=== PATIENT | male | born 1970 | race Caucasian/White ===

== ENCOUNTER 2017-12-02 11:22 | Outpatient (CLI) | payer OTHER | END 2017-12-02 11:33 | disposition home or self-care (01) | LOC: RAD 11:22 | DX: M54.5 Low back pain (principal); M54.2 Cervicalgia ==

== ENCOUNTER 2024-01-13 07:10 | Outpatient (CLI) | payer OTHER ==
[2024-01-13 07:46] LABS: PH,URINE 6.5 (5.0-8.0); URINE APPEARANCE Clear; URINE BILIRRUBIN Negative (NEGATIVE); URINE BLOOD Negative; URINE COLOR Yellow; URINE GLUCOSE Negative (NEGATIVE); URINE KETONE Negative (NEGATIVE); URINE LEUKOCYTE Negative; URINE NITRATE Negative; URINE PROTEIN Negative (NEGATIVE); URINE UROBILINOGEN 0.2 E.U./dl
[2024-01-13 07:48] LABS: URINE RBC 3.8 uL (0.0-20.8)
[2024-01-13 08:00] LABS: URINE BACTERIA 1.2 uL (0.0-1933); URINE EPITHELIAL CELLS 0.3 uL (0.0-38.8); URINE WBC 1.6 uL (0.0-23.2)
[2024-01-13 09:02] LABS: ALBUMIN 3.5 gm/dL (3.4-5.0); BILIRUBIN TOTAL 0.56 mg/dL (0.3-1.2); CALCIUM 8.8 mg/dL (8.5-10.1); CHOL HDL RATIO 3.8 (0-5.0); CREATININE SERUM 0.93 mg/dL (0.70-1.30); GFR 85.66; GLOBULINA 3.2 G/DL (2.4-3.5); HEMOGLOBIN 14.3 g/dL (13-16.00); MEAN CELL VOLUME 83.8 fL (80.0-100.00); MEAN CORPUSCULAR HEMOGLOBIN 29.2 pg (27.00-32.0); MEAN CORPUSCULAR HGB CONC 34.8 g/dl (32.0-36.0); PLATELET COUNT 180 K/uL (150-450); POTASSIUM 3.93 mEq/L (3.5-5.1); PROSTATIC SPECIFIC ANTIGEN 2.9 NG/ML (0.010-4.00); RED BLOOD COUNT 4.89 M/uL (4.00-6.00); RED CELL DISTRIBUTION WIDTH 13.3 % (11.5-14.5); TOTAL PROTEIN 6.7 gm/dL (6.4-8.2); TSH 1.34 uIU/mL (0.358-3.74)
== END 2024-01-13 07:15 | disposition home or self-care (01) ==
LOC: LAB 07:10
PROVIDERS: ATTEND General Practice
DX: E78.2 Mixed hyperlipidemia (principal); R30.0 Dysuria; E03.9 Hypothyroidism, unspecified; E11.69 Type 2 diabetes mellitus with other specified complication; E55.9 Vitamin D deficiency, unspecified; Z12.5 Encounter for screening for malignant neoplasm of prostate

== ENCOUNTER 2024-01-23 11:00 | Outpatient (CLI) | payer OTHER ==
[2024-01-23 12:15] LABS: RH POSITIVE
== END 2024-01-23 11:04 | disposition home or self-care (01) ==
LOC: LAB 11:00
PROVIDERS: ATTEND General Practice
DX: D64.9 Anemia, unspecified (principal)

== ENCOUNTER 2024-03-26 12:52 | Outpatient (CLI) | payer OTHER ==
[2024-03-26 13:40] LABS: HEMATOCRIT 43.1 % (39.0-48.0); HEMOGLOBIN 14.7 g/dL (13-16.00); MEAN CELL VOLUME 85.3 fL (80.0-100.00); MEAN CORPUSCULAR HEMOGLOBIN 29.1 pg (27.00-32.0); MEAN CORPUSCULAR HGB CONC 34.1 g/dl (32.0-36.0); PLATELET COUNT 176 K/uL (150-450); RED BLOOD COUNT 5.05 M/uL (4.00-6.00); RED CELL DISTRIBUTION WIDTH 13.2 % (11.5-14.5)
[2024-03-26 14:39] LABS: MYCOPLASMA PNEUMONIAE IGM NON REACTIVE (NO REACTIVE)
== END 2024-03-26 12:56 | disposition home or self-care (01) ==
LOC: LAB 12:52
PROVIDERS: ATTEND General Practice
DX: J11.1 Influenza due to unidentified influenza virus with other respiratory manifestations (principal); A49.3 Mycoplasma infection, unspecified site

== ENCOUNTER → 2024-06-29 07:09 | Outpatient (CLI) | payer OTHER ==
[2024-06-29 09:01] LABS: HEMATOCRIT 43.1 % (39.0-48.0); HEMOGLOBIN 14.4 g/dL (13-16.00); MEAN CELL VOLUME 85.4 fL (80.0-100.00); MEAN CORPUSCULAR HEMOGLOBIN 28.5 pg (27.00-32.0); MEAN CORPUSCULAR HGB CONC 33.4 g/dl (32.0-36.0); PLATELET COUNT 195 K/uL (150-450); RED BLOOD COUNT 5.05 M/uL (4.00-6.00); RED CELL DISTRIBUTION WIDTH 13.3 % (11.5-14.5)
[2024-06-29 09:08] LABS: PH,URINE 5.5 (5.0-8.0); URINE APPEARANCE Clear; URINE BILIRRUBIN Negative (NEGATIVE); URINE BLOOD Negative; URINE COLOR Yellow; URINE GLUCOSE Negative (NEGATIVE); URINE KETONE Negative (NEGATIVE); URINE LEUKOCYTE Negative; URINE NITRATE Negative; URINE PROTEIN Negative (NEGATIVE); URINE UROBILINOGEN 0.2 E.U./dl
[2024-06-29 09:13] LABS: URINE RBC 5.8 uL (0.0-20.8); URINE WBC 2.2 uL (0.0-23.2)
[2024-06-29 09:34] LABS: URINE CAST 0.14 uL (0.0-1.40); URINE EPITHELIAL CELLS 0.6 uL (0.0-38.8)
[2024-06-29 09:36] LABS: ALBUMIN 3.2 gm/dL (3.4-5.0); BILIRUBIN TOTAL 0.38 mg/dL (0.3-1.2); CALCIUM 8.4 mg/dL (8.5-10.1); CHOL HDL RATIO 3.1 (0-5.0); CREATININE SERUM 0.85 mg/dL (0.70-1.30); FREE TRIODOTIRONINE 3.15 pg/ml (2.18-3.98); GFR 95.03; POTASSIUM 3.98 mEq/L (3.5-5.1); PROSTATIC SPECIFIC ANTIGEN 2.51 NG/ML (0.010-4.00); T4 FREE 0.85 NG/ML (0.76-1.46); TOTAL PROTEIN 6.2 gm/dL (6.4-8.2); TSH 1.37 uIU/mL (0.358-3.74)
== END | disposition home or self-care (01) ==
LOC: LAB 07:09
PROVIDERS: ATTEND General Practice
DX: E11.69 Type 2 diabetes mellitus with other specified complication (principal); R80.9 Proteinuria, unspecified; E55.9 Vitamin D deficiency, unspecified; R30.0 Dysuria; E03.9 Hypothyroidism, unspecified; E78.2 Mixed hyperlipidemia

== ENCOUNTER → 2024-09-14 07:56 | Outpatient (CLI) | payer OTHER ==
[2024-09-14 09:10] LABS: BASO % 0.3 % (0.1-1.2); EOS # 0.12 (0.04-0.54); EOS % 1.7 % (0.7-7.0); HEMATOCRIT 42.1 % (40.1-51.0); LYMPH # 1.06 (1.18-3.74); MEAN CORPUSCULAR HEMOGLOBIN 28.2 pg (25.6-32.2); MONO # 0.61 (0.24-0.82); MONO % 8.6 % (4.7-12.5); NEUT # 5.23 (1.56-6.13); PLATELET COUNT 172 K/uL (163-369); RED BLOOD COUNT 4.96 M/uL (4.63-6.08); RED CELL DISTRIBUTION WIDTH 13.2 % (11.6-14.4)
[2024-09-14 09:13] LABS: URINE APPEARANCE Clear; URINE BILIRRUBIN Negative (NEGATIVE); URINE BLOOD Negative; URINE COLOR Yellow; URINE GLUCOSE Negative (NEGATIVE); URINE KETONE Negative (NEGATIVE); URINE LEUKOCYTE Negative; URINE NITRATE Negative; URINE PROTEIN Negative (NEGATIVE); URINE UROBILINOGEN 0.2 E.U./dl
[2024-09-14 09:19] LABS: URINE BACTERIA 4.8 uL (0.0-1933); URINE RBC 5.3 uL (0.0-20.8)
[2024-09-14 09:27] LABS: URINE CAST 0.14 uL (0.0-1.40); URINE EPITHELIAL CELLS 0.7 uL (0.0-38.8); URINE WBC 1.7 uL (0.0-23.2)
[2024-09-14 09:33] LABS: PARTIAL THROMBOPLASTIN TIME 24.2 SECONDS (22.0-34.0); PROTHROMBIN TIME 10.9 SECONDS (9.0-11.5)
[2024-09-14 09:57] LABS: BILIRUBIN TOTAL 0.45 mg/dL (0.3-1.2); CALCIUM 8.6 mg/dL (8.5-10.1); CHOL HDL RATIO 3.1 (0-5.0); CREATININE SERUM 0.82 mg/dL (0.70-1.30); GFR 98.66; GLOBULINA 3.3 G/DL (2.4-3.5); POTASSIUM 4.13 mEq/L (3.5-5.1); PROSTATIC SPECIFIC ANTIGEN 2.08 NG/ML (0.010-4.00); T4 TOTAL 6.02 UG/DL (4.5-12.1); TOTAL PROTEIN 6.3 gm/dL (6.4-8.2); TSH 0.555 uIU/mL (0.358-3.74)
[2024-09-17 11:08] LABS: hav igm Negative (Negative); hcv Non Reactive (Non Reactive); hep b c Negative (Negative); hep b s ag Negative (Negative)
== END | disposition home or self-care (01) ==
LOC: LAB 07:56
PROVIDERS: ATTEND Specialist
DX: D50.9 Iron deficiency anemia, unspecified (principal); N28.9 Disorder of kidney and ureter, unspecified; D68.2 Hereditary deficiency of other clotting factors; E34.9 Endocrine disorder, unspecified; K75.9 Inflammatory liver disease, unspecified; B20 Human immunodeficiency virus [HIV] disease; R97.20 Elevated prostate specific antigen [PSA]